=== PATIENT | female | born 1970 | race Caucasian/White ===

== ENCOUNTER 2019-01-10 17:33 | Emergency (ER) | payer OTHER, MEDICAID ==
[2019-01-10] MEDS: KETOROLAC 60 MG INJ IM (20:16)
[2019-01-10] MEDS: DIAZEPAM 2 MG TAB PO (20:20)
== END 2019-01-10 20:43 | disposition home or self-care (01) ==
LOC: FTE 17:33
DX: S39.012A Strain of muscle, fascia and tendon of lower back, initial encounter (principal); S49.91XA Unspecified injury of right shoulder and upper arm, initial encounter; V49.49XA Driver injured in collision with other motor vehicles in traffic accident, initial encounter
CPT/HCPCS: 96372; 99284-25